=== PATIENT | female | born 1985 | race African-American/Black ===

== ENCOUNTER 2016-05-25 14:00 | Emergency (ER) | payer BC, OTHER ==
[~2016-05-25 14:00] MED LIST: CIPRO PO; DICLOFENAC PO; FIORINAL CAPSUL1 CAP PO; FLEXERIL10 MG PO; IBUPROFEN800 MG PO; METFORMIN HCL500 M1 PO; ORTHO-NOVUM1 TAB PO; ORUDIS75 M1 PO; PHENERGAN PO; PRENATAL MULITV1 TAB PO; VICODIN PO
== END 2016-05-25 14:20 | disposition home or self-care (01) ==
LOC: CFTX 14:00
DX: S05.02XA Injury of conjunctiva and corneal abrasion without foreign body, left eye, initial encounter (principal); E28.2 Polycystic ovarian syndrome; F17.200 Nicotine dependence, unspecified, uncomplicated; Z88.0 Allergy status to penicillin; X58.XXXA Exposure to other specified factors, initial encounter; Y92.9 Unspecified place or not applicable
CPT/HCPCS: 99283

== ENCOUNTER 2016-08-22 19:50 | Emergency (ER) | payer BC | END 2016-08-22 21:45 | disposition home or self-care (01) | LOC: CED 19:50 | DX: S16.1XXA Strain of muscle, fascia and tendon at neck level, initial encounter (principal); S66.912A Strain of unspecified muscle, fascia and tendon at wrist and hand level, left hand, initial encounter; F17.210 Nicotine dependence, cigarettes, uncomplicated; Z88.0 Allergy status to penicillin; V43.52XA Car driver injured in collision with other type car in traffic accident, initial encounter | CPT/HCPCS: 99283 ==